=== PATIENT | female | born 1995 | race Caucasian/White ===

== ENCOUNTER 2025-03-11 17:38 | Emergency (ER) | payer OTHER, SELFPAY ==
--- OUTSIDE RECORDS SUMMARY | 2025-03-11 17:41 | XMS_ITS | Clinical Summary ---
Author Organization [facility] Address [facility] [place] [address] Care Team Providers Care Quality Control Scientist Name Role Phone ColtonteRicardo wahl MD Primary Care Provider + Allergies No known active allergies Medications cloNIDine (NEXICLON XR) 0.1 mg extended release tablet TAKE ONE TABLET BY MOUTH ONE TIME DAILY for 30 dys 3 Active Vyvanse 50 mg capsule 3 Active venlafaxine extended release (VENLAFAXINE XR, [employer],) 225 mg extended release tablet 3 Active ketoconazole 2% shampoo (NIZORAL) 2 % shampoo USE DIRECTED. ONE APPLICATION TO CLEAN HAIR TWICE WEEKLY 3 Active vilazodone (VIIBRYD) 40 mg tablet Take 40 mg by mouth once daily. Active amitriptyline 25 mg tabletIndicatio ns:Migraine syndrome Take 1 Tablet (25 mg) by mouth at bedtime. 90 Tablet 3 5 Active SUMAtriptan (IMITREX) 25 mg tabletIndicatio ns:Migraine syndrome Take 1 Tablet (25 mg) by mouth every 2 hours if needed for Migraine. Give at minimum 2hrs apart. Max Dose: 200mg per 24hrs. 10 Tablet 3 5 Active Active Problems Problem Noted Date Diagnosed Date Suicidal ideation 03/09/2017 Severe episode of recurrent major depressive disorder, with psychotic features 03/05/2017 Generalized anxiety disorder 03/05/2017 Panic disorder 03/05/2017 PTSD (post-traumatic stress disorder) 03/05/2017 Social anxiety disorder 07/13/2010 Puncture wound of abdomen Insomnia Borderline personality disorder Macromastia Resolved Problems Problem Noted Date Diagnosed Date Resolved Date Major depression, single episode 07/13/2010 03/23/2017 Immunizations Immunization Administration Dates Next Due AMB Influenza, IIV3 (Age >=3 years)(Flu Clinic Only) 06/01/2010 COVID-19 vaccine (Valkee NTfotobabble 30mcg/0.3mL) 12YO+ BIVALENT PF, MDV 09/12/2022 DTP-HIB 1996,1996,1996 DTaP 03/25/2001,06/19/1997 Hepatitis A (Peds) 06/29/2008,11/04/2007 Hepatitis B (Peds) 03/12/1997,1996, 996 Human Papilloma Virus Vaccine 06/29/2008, 008,11/04/2007 INFLUENZA, IIV3 PF (AGE >= 6 MO) 04/17/2024 Inactivated Polio Vaccine 03/25/2001 Influenza, IIV3 (Age >=3 years) 06/01/2010,07/10,06/13/2006 Influenza, IIV4 05/06/2023, 3,09/12/2021,05/28 MENINGOCOCCAL VACCINE 2 VIAL 2MO-55YO (MENVEO) 03/12/2013 MMR 11/04/2007,03/12/1997 Meningococcal Vaccine (Menactra) 11/04/2007 Oral Polio Vaccine 1996,1996, 996 Tdap 10/29/2018,11/04/2007 Family History Medical History Relation Name Comments Heart Disease Father [place] age 48 Diabetes Maternal Grandfather Relation Name Status Comments Father Maternal Grandfather Social History Tobacco Use Types Packs/Day Years Used Date Smoking Tobacco: Former Cigarettes 0.3 5.6 2 020 - 2018 Smokeless Tobacco: Never Tobacco Cessation:Counseling Given: Yes Alcohol Use Standard Drinks/Week Comments Not Currently 1 (1 standard drink = 0.6 oz pur e alcohol) PHQ-2 Answer Date Recorded PHQ-2 TOTAL SCORE 5 09/12/2022 Social Connections Answer Date Recorded Do you often feel lonely or isolated from those around you? 0 08/14/2024 Financial Resource Strain Answer Date R ecorded Difficulty of Paying Living Expenses 3 08/14/2024 Difficulty of Paying Living Expenses Not on file 08/14/2024 Food Insecurity Answer Date Recorded Do you worry your food will run out before you are able to buy more? 1 08/14/2024 Transportation Needs Answer Date Record ed Does lack of transportation keep you from medica l appointments? 1 08/14/2024 Does lack of transportation keep you from work, meetings or getting things that you need? 1 08/14/2024 Housing Stability Answer Date Recorded What is your housing situation today? 1 08/14/2024 Utilities Answer Date Recorded Do you have trouble paying f or utilities (for example, heat, electricity, water, phone)? 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 BRUSH OPERATOR Gender Identity Female 06/10/2020 2:21 PM CDT Sexual Orientation Not on file Obstetrics History Last Filed Vital Signs Vital Sign Reading Time Taken Comments Blood Pressure 115/80 08/14/2024 8:04 AM WIRE BRUSH OPERATOR Pulse 104 08/14/2024 8:04 AM WIRE BRUSH OPERATOR Temperature 37.6 C (99.6 F) 01/19/2023 9:02 AM CDT Respiratory Rate 16 01/19/2023 9:02 AM CDT Oxygen Saturation 99% 08/14/2024 8:04 AM WIRE BRUSH OPERATOR Inhaled Oxygen Concentration - - Weight 100.2 kg (220 lb 14.4 oz) 08/14/2024 8:04 AM WIRE BRUSH OPERATOR Height 160 cm (5' 3) 08/14/2024 8:04 AM WIRE BRUSH OPERATOR Body Mass Index 39.13 08/14/2024 8:04 AM WIRE BRUSH OPERATOR Plan of Treatment Health Maintenance Due Date Last Done Comments HIV for age 15-65 02/24/2011 Hepatitis C screening for age 18-79 02/24/2014 Pap test for age 21-65 02/24/2017 Depression screening for age 12+ 09/12/2023 09/12/2022, 07/28/2020, 02/09/2020, Additional history exists Influenza Vaccine (#1) 2025 , 05/06/2023, 09/12/2022, Additional history exists BMI (ht and wt on same day) for age 18+ 08/14/2025 08/14/2024, 11/30/2022, 11/07/2022, Additional history exists Tetanus booster 10/29/2028 10/29/2018, 11/04/2007 Hepatitis B series for 19+ Completed 03/12, 1996, 1996 COVID-19 vaccine series Completed 04/17/20, 06/28/2023, 09/12/2022, Additional history exists Pneumococcal series for age 6-49 Aged Out No longer eligible based on patient's age to complete this topic Insurance [facility] Advance Directives * Full Code (Latest Code Status on File) Date Activated Date Inactivated Comments 12/14/2022 7:05 AM 12/14/2022 6:41 PM Question Answer Comments Code Status Discussion: Reviewed Preferences * Full Code Date Activated Date Inactivated Comments 07/12/2010 6:51 PM 07/29/2010 1:22 PM Care Teams Quality Control Scientist Relationship Specialty Start Date End Date Votel, Ricardo Reed MD [address] [place] [address] PCP - General Family Practice 06/17/24
[2025-03-11 17:48] VITALS: BP 139/96; PULSE 112; RESP 20; TEMP 36.2; O2SAT 98; BMI 39.3
--- NOTE | 2025-03-11 19:14 | ED.GENADULT ---
HPI - General Adult General Date Seen: 03/11/25 Chief complaint: Psychiatric Problem/Disorder Stated complaint: mental health Time Seen by Provider: 03/11/25 19:07 History of Present Illness HPI narrative: 30 yo F who arrives in the ER with police department who is on hold. She has depression and suicidal ideation. Please say they were called to the patient's house for a welfare check after the patient did not show up for work today. She has a history of self-harm by cutting and has thoughts of suicide currently but did not do anything to hurt herself today. She lives with her mother. Mother is here with her and pads Per the patient's [facility] medical record she has a history social anxiety, severe recurrent depression with psychotic features, generalized anxiety, panic disorder, PTSD, borderline personality, migraine headaches. History is obtained partly from the patient and partly from her mother. She does have a long history of troubles with depression. It sounds like she has had depression and many years. She has previous suicide attempts and hospitalizations all more than 5 years ago. She also has a history of self cutting, several years ago. She is currently on meds prescribed by psychiatrist the [facility] but does not have a therapist. She had been in a long-term relationship with her boyfriend that and did so many months ago. Since then she has been living with her mother, and her mother's basement. 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 She says she had a very rough day at work on Sunday, 2 days ago. She cannot give me any specific example of a was bad. She says that since then she has been feeling very down. She has basically been staying in bed all the time since Sunday. She did have the energy to get up to go to work yesterday or today. She has been staying in the basement of her mother's house. She has not really been in contact with her mother so mother did not know how much she has been struggling. She has been thinking about suicide, specifically either cutting her self with her box office agent or overdosing on her pills. She says she did not actually do anything to hurt herself. What brought her to the ER today was that her employer called police for a welfare check. When police arrived she was very tearful and distraught. They insisted that she come here to the ER and put on a please transport hold, but allowed her to ride in her mother's car to get here. Notably, her mother says that she has spells like this about once per month. Mother did not think much of this pelvis week. However she has never really missed work before. It sounds like she has had thoughts of suicide in the recent past but has been making specific plans, as she was today. She denies drug or alcohol use. She is not . She at has a doctor who manages her meds but she has not seen her doctor in several months and has not had any recent med changes. She does not have a long-term counselor/therapist. She has seen a few but they were not a good fit. She is hopeless about finding any therapist that can help her. When I ask her how she is feeling now in the ER she says she still very sad. She has no energy. She has no plans. If discharge she says she would probably just go home only in bed. She does not think she has energy go to work tomorrow. She says she does not currently have a plan for committing suicide, but was thinking about cutting or overdosing earlier. Related Data Home Medications ?Medication ?Instructions ?Recorded ?Confirmed amitriptyline 25 mg tablet 25 mg PO QPM 03/11/25 03/11/25 aripiprazole 5 mg tablet 2.5 mg PO DAILY 03/11/25 03/11/25 clonidine HCl 0.1 mg tablet 0.1 mg PO BID 03/11/25 03/11/25 dextroamphetamine-amphetamine 10 1 tab PO DAILY 03/11/25 03/11/25 mg tablet dextroamphetamine-amphetamine ER PO 03/11/25 10 mg 24hr capsule,extend release dextroamphetamine-amphetamine ER 1 cap PO BID 03/11/25 03/11/25 20 mg 24hr capsule,extend release dextroamphetamine-amphetamine ER PO 03/11/25 30 mg 24hr capsule,extend release sumatriptan succinate 25 mg tablet 25 mg PO Q2H PRN migraine 03/11/25 03/11/25 venlafaxine 225 mg tablet,extended 225 mg PO DAILY 03/11/25 03/11/25 release 24 hr vilazodone 40 mg tablet 40 mg PO DAILY 03/11/25 03/11/25 Allergies Allergy/AdvReac Type Severity Reaction Status Date / Time No Known Drug Allergies Allergy Verified 03/11/25 17:44 Exam Narrative: Exam Narrative: Constitutional: Appears well-developed and well-nourished. Alert but very flat affect, laying on the bed, poor eye contact. Non toxic. HENT: Head: Atraumatic. Nose: Nose normal. Mouth/Throat: Oral mucosa is clear and moist. no trismus. Eyes: Conjunctivae normal. EOM normal. Pupils equal, round, and reactive to light. No scleral icterus. Neck: Normal range of motion. Neck supple. No tracheal deviation present. Cardiovascular: Normal rate, regular rhythm. No gallop. No friction rub. No murmur heard. Symmetric radial artery pulses Pulmonary/Chest: Effort normal. No stridor. No respiratory distress. No wheezes. No rales. No rhonchi . No tenderness. Abdominal: Soft. No distension. No mass. No tenderness. No rebound. No guarding. Musculoskeletal: RUE: Normal range of motion. No tenderness. No deformity LUE: Normal range of motion. No tenderness. No deformity RLE: Normal range of motion. No edema. No tenderness. No deformity LLE: Normal range of motion. No edema. No tenderness. No deformity Neurological: Alert and oriented to person, place, and time. Normal strength. CN II-VII intact. No sensory deficit. GCS eye subscore is 4. GCS verbal subscore is 5. GCS motor subscore is 6. Normal coordination Skin: Skin is warm and dry. No rash noted. No pallor. Normal capillary refill. Psychiatric: Flat affect. See HPI. Const: Vital Signs, click to edit/add: Vital Signs - 24 hr 03/11/25 17:48 03/11/25 20:49 Temperature 97.2 F L Pulse Rate [Pulse Oximeter] 112 H 105 H Respiratory Rate 20 16 Blood Pressure [Ri ght Upper Arm] 139/96 H 132/105 H Pulse Oximetry 98 98 Oxygen Delivery Me thod Room Air Room Air Course Course ED Course: Patient was evaluated by counselor through [facility]. Initially he was rating her at a ?moderate? suicide risk but it turns out she had not told him about her plans to overdose or cut her wrists. Knowing that information, he does think she is high risk and he agrees with me that she meets criteria for inpatient placement. At this point she is voluntarily excepting inpatient, but she would be holdable if she were to change her mind. Based on vital signs, clinical appearance, laboratory workup, She is medically clear for inpatient mental health admission. Vital Signs Vital signs: Initial Vital Signs Temperature 97.2 F L 03/11/25 17:48 Temperature Source Temporal Artery Scan 03/11/25 17:48 Pulse Rate 112 H 03/11/25 17:48 Respiratory Rate 20 03/11/25 17:48 Blood Pressure 139/96 H 03/11/25 17:48 Blood Pressure Mean 110 H 03/11/25 17:48 Pulse Oximetry 98 03/11/25 17:48 Oxygen Delivery Method Room Air 03/11/25 17:48 Vital Signs Temperature 97.2 F L 03/11/25 17:48 Pulse Rate 112 H 03/11/25 17:48 Respiratory Rate 20 03/11/25 17:48 Blood Pressure 139/96 H 03/11/25 17:48 Pulse Oximetry 98 03/11/25 17:48 Oxygen Delivery Method Room Air 03/11/25 17:48 Temperature 97.2 F L 03/11/25 17:48 Pulse Rate 105 H 03/11/25 20:49 Respiratory Rate 16 03/11/25 20:49 Blood Pressure 132/105 H 03/11/25 20:49 Pulse Oximetry 98 03/11/25 20:49 Oxygen Delivery Method Room Air 03/11/25 20:49 Medical Decision Making MDM Narrative Medical decision making narrative: 30-year-old female presenting to ER on a police hold but in car with her mother for evaluation of depression, low energy, inability to go to work for the past few days, hopelessness, and also thoughts of suicide. She did have plans for suicide including overdosing or cutting when she was at home. Here in the ER she has a very flat affect but is no longer feeling immediately suicidal. However she has no forward thinking. She does not really have any protective factors to keep her safe from suicide. Her mother is attentive at her side, but I do not think her mother recognizes the degree of her depression that she is going through lately. Her father was killed in a car accident when she was a child. At this point after evaluation by myself and by [facility] psychology we agree that she meets criteria for inpatient mental health admission both for safety and help get her more help and support with her depression. At she is voluntary but would be holdable. At this point with reasonable clinical confidence and she is medically clear for mental health evaluation and admission. At the time of this dictation she is being assessed for inpatient admission. Discussed with oncoming partner, Dr. Sanabria oversee until disposition can be determined. Lab Data Labs: Lab Results 03/11/25 03/11/25 03/11/25 Range/Units 19:52 19:55 20:43 WBC 11.52 H (4.50-11.00) K/uL RBC 5.16 (4.00-5.20) m/uL Hgb 14.8 (12.0-16.0) gm/dL Hct 44.6 (33.0-51.0) % MCV 86 (80-100) fL MCH 29 (26-34) pg MCHC 33 (32-36) gm/dL RDW Coeff of Taniya 12.8 (11.5-15.5) % Plt Count 334 (140-440) K/uL Neut % (Auto) 72.2 H (42.0-72.0) % Lymph % (Auto) 20.1 (20-44) % [place] % (Auto) 5.3 (0.0-11.0) % Eos % (Auto) 1.8 (0.0-7.0) % Baso % (Auto) 0.3 (0.0-3.0) % Neut # (Auto) 8.30 H (1.7-7.0) K/uL Lymph # (Auto) 2.30 (0.90-2.90) K/uL [place] # (Auto) 0.60 (0.00-0.90) K/UL Eos # (Auto) 0.20 (0.00-0.50) K/uL Baso # (Auto) 0.00 (0.00-0.30) K/uL Abs Immat Gran (auto) 0.00 (0.00-0.30) K/uL Imm/Tot Granulo (auto) 0.3 % Sodium 138 (135-149) mmol/L Potassium 4.0 (3.6-5.1) mmol/L Chloride 106 (96-114) mmol/L Carbon Dioxide 23 (20-32) mmol/L Anion Gap 9 (7-15) mEq/L BUN 8 (5-24) mg/dL Creatinine 0.7 (0.5-1.5) mg/dL Estimated Creat Clear 98.09 Estimated GFR 120 ml/min Glucose 90 (60-115) mg/dL Calcium 9.8 (8.4-10.6) mg/dL Total Bilirubin 0.4 (0.1-1.5) mg/dL AST 31 (12-35) U/L ALT 54 H (4-35) U/L Alkaline Phosphatase 73 (40-150) U/L Total Protein 8.0 (6.0-8.3) g/dL Albumin 4.7 (3.3-5.0) g/dL Urine HCG, Qual Negative (Negative) Salicylates < 1.0 L (1.0-10) mg/dL Urine Opiates Screen Negative (Negative) Ur Oxycodone Screen Negative (Negative) Urine Methadone Screen Negative (Negative) Acetaminophen < 10.0 (10.0-30.0) ug/mL Ur Barbiturates Screen Negative (Negative) U Tricyclic Antidepress POSITIVE A (Negative) Ur Phencyclidine Scrn Negative (Negative) Ur Amphetamines Screen Negative (Negative) U Methamphetamines Scrn Negative (Negative) U Benzodiazepines Scrn Negative (Negative) Urine Cocaine Screen Negative (Negative) U Marijuana (THC) Screen Negative (Negative) Ur Drug Screen Comment See Note Ethyl Alcohol < 0.01 (0.01-0.03) % SARS-CoV-2 (PCR) Negative SARS-CoV-2 (Negative) SARS-CoV-2 Ag (Rapid) Cancelled Discharge Plan Discharge Prescriptions: No Action clonidine HCl 0.1 mg tablet 0.1 mg PO BID sumatriptan succinate 25 mg tablet 25 mg PO Q2H PRN (Reason: migraine) dextroamphetamine-amphetamine 10 mg tablet 1 tab PO DAILY amitriptyline 25 mg tablet 25 mg PO QPM dextroamphetamine-amphetamine 20 mg capsule,extended release 24hr 1 cap PO BID dextroamphetamine-amphetamine 10 mg capsule,extended release 24hr PO dextroamphetamine-amphetamine 30 mg capsule,extended release 24hr PO aripiprazole 5 mg tablet 2.5 mg PO DAILY venlafaxine 225 mg tablet extended release 24hr 225 mg PO DAILY vilazodone 40 mg tablet 40 mg PO DAILY Follow Up/Referrals: Ricardo Ramos MD [Primary Care Provider, [facility]]
[2025-03-11 20:10] LABS: Hematocrit 44.6 % (33.0-51.0); Hemoglobin* 14.8 gm/dL (12.0-16.0); Immature Granulocytes Pct Auto 0.3 %; Mean Corpuscular HGB Conc 33 gm/dL (32-36); Mean Corpuscular Hemoglobin 29 pg (26-34); Mean Corpuscular Volume 86 fL (80-100); RDW Coefficient of Variation % 12.8 % (11.5-15.5); Red Blood Count 5.16 m/uL (4.00-5.20); White Blood Count* 11.52 K/uL (4.50-11.00)
[2025-03-11 20:13] LABS: Immature Granulocytes Abs Auto 0.00 K/uL (0.00-0.30); Lymphocytes Absolute Auto 2.30 K/uL (0.90-2.90); Slide Review Reflex No
[2025-03-11 20:26] LABS: Albumin* 4.7 g/dL (3.3-5.0); Chloride* 106 mmol/L (96-114); Sodium* 138 mmol/L (135-149)
[2025-03-11 20:27] LABS: Potassium* 4.0 mmol/L (3.6-5.1)
[2025-03-11 20:29] LABS: Alanine Aminotransferase* 54 U/L (4-35); Alkaline Phosphatase* 73 U/L (40-150); Anion Gap 9 mEq/L (7-15); Aspartate Amino Transferase* 31 U/L (12-35); Bilirubin Total* 0.4 mg/dL (0.1-1.5); Blood Urea Nitrogen* 8 mg/dL (5-24); Calcium* 9.8 mg/dL (8.4-10.6); Carbon Dioxide* 23 mmol/L (20-32); Creatinine* 0.7 mg/dL (0.5-1.5); Est. Creatinine Clearance* 98.09; Estimated Glomerular Filt Rate 120 ml/min; Glucose* 90 mg/dL (60-115); Total Protein* 8.0 g/dL (6.0-8.3)
[2025-03-11 20:30] LABS: Acetaminophen* < 10.0 ug/mL (10.0-30.0); Ethanol* < 0.01 % (0.01-0.03); Salicylate* < 1.0 mg/dL (1.0-10)
[2025-03-11 20:35] LABS: SARS PCR* Negative SARS-CoV-2 (Negative)
[2025-03-11 20:49] VITALS: BP 132/105; PULSE 105; RESP 16; O2SAT 98
[2025-03-11 20:53] LABS: Ur HCG Qualitative* Negative (Negative)
[2025-03-11 21:05] LABS: Cannabinoid Screen Urine Negative (Negative); Methamphetamines Screen Urine Negative (Negative); Tricyclic Antidepressant Urine POSITIVE (Negative)
[2025-03-12 01:16] VITALS: BP 128/89; PULSE 98; RESP 16; TEMP 36.5; O2SAT 98
[2025-03-12] MEDS: VENLAFAXINE ER 75 MG CAPSULE 225 MG PO (08:14)
[2025-03-12 08:15] VITALS: BP 122/92; PULSE 125; RESP 16; TEMP 36.1; O2SAT 96
== END 2025-03-12 08:33 ==
PROVIDERS: Emergency Provider Emergency Medicine; PCP Family Medicine
DX: R45.851 Suicidal ideations (principal); F32.A Depression, unspecified; Z00.8 Encounter for other general examination
CPT/HCPCS: 36415; 80053; 80143; 80179; 80306; 81025; 82077; 85025; 87426; 87635; 99284; 99285; Q3014; A9270

== ENCOUNTER 2025-03-12 08:30 | Outpatient (CLI) | payer OTHER, SELFPAY | END 2025-03-12 08:31 | disposition home or self-care (01) | LOC: AMB 03-18 15:52 | PROVIDERS: PCP Family Medicine; Visit Provider Emergency Medicine | DX: R45.851 Suicidal ideations (principal) | CPT/HCPCS: A0425; A0428 ==